=== PATIENT | male | born 1990 | race American Indian/Alaskan Native ===

== ENCOUNTER 2020-09-10 16:34 | Emergency (ER) | payer SELFPAY ==
[2020-09-10] MEDS ORDERED: diphenhydrAMINE 50 MG/ML VIAL IV ONE (16:36)
[2020-09-10] MEDS ORDERED: FAMOTIDINE 20 MG/2 ML INJ IV ONE (16:36)
[2020-09-10] MEDS ORDERED: EPINEPHrine/PF 1 MG/1 ML INJ SUB-Q ONE (16:36)
[2020-09-10] MEDS ORDERED: methylPREDNISolone Sod Succinate 125 MG/2 ML INJ IV ONE (16:36)
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
== END 2020-09-10 19:06 | disposition home or self-care (01) ==
LOC: ED 16:34
DX: T78.09XA Anaphylactic reaction due to other food products, initial encounter (principal); Z79.899 Other long term (current) drug therapy; Z88.8 Allergy status to other drugs, medicaments and biological substances; Z21 Asymptomatic human immunodeficiency virus [HIV] infection status
CPT/HCPCS: 96372; 96374; 96375